=== PATIENT | female | born 1960 | race Caucasian/White ===

== ENCOUNTER → 2017-12-14 | Outpatient (CLI) | payer BC ==
--- NOTE | 2017-12-16 09:34 | MM ---
Reason for exam: screening (asymptomatic). Last mammogram was performed 1 year and 8 months ago. History: Patient is postmenopausal. Physical Findings: A clinical breast exam by your physician is recommended on an annual basis and results should be correlated with mammographic findings. MG 3D Screening Mammo W/Cad Bilateral CC and MLO view(s) were taken. Prior study comparison: April 01, 2016, bilateral MG 3d screening mammo w/cad. February 21, 2015, bilateral MG screening mammo w CAD. There are scattered fibroglandular densities. No significant changes when compared with prior studies. ASSESSMENT: Benign, BI-RAD 2 RECOMMENDATION: Routine screening mammogram of both breasts in 1 year.
== END | disposition home or self-care (01) ==
LOC: RADMAMWWP 09:31
PROVIDERS: ATTEND Internal Medicine
DX: Z12.31 Encounter for screening mammogram for malignant neoplasm of breast (principal)
CPT/HCPCS: 77063; 77067

== ENCOUNTER 2019-02-03 13:17 | Emergency (ER) | payer BC ==
[2019-02-03 13:36] VITALS: RESP 18
[2019-02-03] MEDS ORDERED: DIPH,PERTUS(ACELL)TETVAC-LF 0.5 ML VIAL IM ONE (14:13)
--- NOTE | 2019-02-03 15:08 | ED ---
General Adult HPI - General Chief complaint: Head Injury Stated complaint: Fall, Head injury Time Seen by Provider: 02/03/19 13:52 Source: patient Mode of arrival: ambulatory Limitations: no limitations - History of Present Illness Initial comments: Patient is a 58-year-old female presenting to the emergency department with a chief complaint of a head injury. Patient reports a large board fell on the frontoparietal aspect of the head. Patient denies any loss of consciousness at time of incident. Patient does report a mild laceration at the region of injury. Patient does report mild throbbing at the site of injury. Patient denies any nausea vomiting, visual disturbances, gait instability. Patient denies any neck tenderness. Patient is not on blood thinners. Patient is not aware of her tetanus status. Patient denies taking medication to alleviate the symptoms. - Related Data Allergies Allergy/AdvReac Type Severity Reaction Status Date / Time No Known Allergies Allergy Verified 02/03/19 13:36 Review of Systems ROS Statement: Those systems with pertinent positive or pertinent negative responses have been documented in the HPI. ROS Other: All systems not noted in ROS Statement are negative. Past Medical History Past Medical History: No Reported History History of Any Multi-Drug Resistant Organisms: None Reported Past Surgical History: No Surgical Hx Reported Past Psychological History: No Psychological Hx Reported Smoking Status: Never smoker Past Alcohol Use History: None Reported Past Drug Use History: None Reported General Exam - General Exam Comments Initial Comments: General: Well-developed well-nourished distress Head: 1 cm laceration on the frontoparietal aspect, no active bleeding, no periorbital ecchymosis, negative Renee sign, negative hemotympanum HEENT: Normocephalic/atraumatic, PERLL, pharynx erythema, swallowing well, EAC no erythema, no exudates, TM clear, no cervical lymph nodes Neck: Supple, nontender, trachea midline Chest/Lungs: Normal respirations, no signs of respiratory distress clear to auscultation bilaterally no wheezes, rales, rhonchi Cardiac: Regular rate and rhythm, normal S1-S2, no murmurs rubs or gallops Abdomen/GI: Soft nontender, bowel sounds equal or quadrant x4, no guarding, no rebound no CVA tenderness Musculoskeletal: Nontender, full range of motion, no edema, strength equal bilaterally Skin: Warmth, no rashes or lesions, no cyanosis or diaphoresis Neurologic: AAO x 3, CN 2-12 intact, Psychiatric: Mood and affect normal, judgment normal Limitations: no limitations Course Vital Signs 02/03/19 13:33 Temperature 98.1 F Pulse Rate 115 H Respiratory 18 Rate Blood Pressure 148/85 O2 Sat by Pulse 99 Oximetry Medical Decision Making - Medical Decision Making Patient is a 58-year-old female presenting to emergency Department with a chief complaint of a head injury. A board follow-up on the patient's anterior parietal region of the head. Patient had no loss of consciousness nausea vomiting or any other symptoms. Laceration was repaired with [address] of the brain and C-spine is negative for acute hemorrhage or midline shift. Patient advised to return to the ED for staple removal in 10-14 days. Patient advised on proper wound care. Strict return parameters were thoroughly discussed the patient is understanding and agreeable. Case discussed physician. Disposition Clinical Impression: Scalp laceration Disposition: HOME SELF-CARE Condition: Stable Instructions (If sedation given, give patient instructions): Staple Care (ED) Additional Instructions: Please return to the emergency department for suture removal in 10-14 days. Please follow proper wound care. Please return to emergency department sooner if symptoms worsen. Is patient prescribed a controlled substance at d/c from ED?: No Referrals: Goyo Dunne MD [Primary Care Provider] - 1-2 days Time of Disposition: 15:08
--- NOTE | 2019-02-03 15:14 | CT ---
EXAMINATION TYPE: CT brain marija lowery DATE OF EXAM: 02/03/2019 COMPARISON: None HISTORY: Board fell hitting her head. CT DLP: 1317.8 mGycm, Automated exposure control for dose reduction was used. CONTRAST: None CT of the brain is performed utilizing 3 mm thick sections through the posterior fossa and 3 mm thick sections through the remaining calvarium. Study is performed within 24 hours of arrival to the hospital. No abnormal hyperdensity is present to suggest an acute intracranial hemorrhage. No mass lesion is evident. No acute infarcts are evident. Ventricles and sulci are appropriate for the patient age. Paranasal sinuses and mastoid air cells within the [id number] are clear. IMPRESSIONS: 1. Normal CT brain. CT cervical spine. COMPARISON: None CT of the cervical spine is performed in the axial plane at 2 mm thick sections. Reconstructed image s in the coronal, and sagittal plane are reviewed on the computer. No acute fractures are evident. Vertebral body alignment is normal. Disc heights are preserved. Vertebral body heights are preserved. No spinal canal stenosis is evident. No neural foraminal stenosis is evident. Mild right facet changes may be present C3-4 C4-5 IMPRESSIONS: 1. No acute abnormality cervical spine.
[2019-02-03 15:29] VITALS: BP 164/88; PULSE 98; TEMP 98
== END 2019-02-03 15:29 | disposition home or self-care (01) ==
LOC: EC 13:17
DX: S01.01XA Laceration without foreign body of scalp, initial encounter (principal); Z23 Encounter for immunization; W20.8XXA Other cause of strike by thrown, projected or falling object, initial encounter
CPT/HCPCS: 12001; 70450; 72125; 90471; 90715; 99283

== ENCOUNTER 2019-07-19 06:03 | Emergency (ER) | payer BC ==
[2019-07-19 06:10] VITALS: TEMP 97.7
[2019-07-19] MEDS ORDERED: SODIUM CHLORIDE 0.9% 1,000 ML IV STA ×2 (06:18)
[2019-07-19] MEDS ORDERED: KETOROLAC 30 MG/ML 1 ML VIAL IVP STA (06:18)
[2019-07-19] MEDS ORDERED: ONDANSETRON 4 MG/2 ML VIAL IVP STA (06:18)
[2019-07-19] MEDS ORDERED: MORPHINE SULFATE 4 MG/ML SYRINGE IV STA (06:18)
--- NOTE | 2019-07-19 06:23 | ED ---
Abdominal Pain HPI - General Chief Complaint: Abdominal Pain Stated Complaint: kidney stones Time Seen by Provider: 07/19/19 06:12 Source: patient, RN notes reviewed, old records reviewed Mode of arrival: ambulatory Limitations: no limitations - History of Present Illness Initial Comments: Patient is a 58-year-old female who presents the emergency department today with chief complaint of right lower abdominal pain and right flank pain. Symptoms starting at 3:30 this morning and woke her up from sleep. Patient reports that she thinks is having a kidney stone. She's had these before. She reports that they've all passed on their own without any surgical intervention. Patient denies any recent fevers or chills. She does complain of some nausea. - Related Data Previous Rx's Medication Instructions Recorded HYDROcodone/APAP 5-325MG [Onley 1 tab PO Q6HR PRN 3 Days #12 tab 07/19/19 5-325] Ketorolac [Toradol] 10 mg PO Q6HR #12 tab 07/19/19 Ondansetron Odt [Zofran Odt] 4 mg PO Q8HR PRN #12 tab 07/19/19 Tamsulosin [Flomax] 0.4 mg PO DAILY #7 cap 07/19/19 Allergies Allergy/AdvReac Type Severity Reaction Status Date / Time No Known Allergies Allergy Verified 02/03/19 13:36 Review of Systems ROS Statement: Those systems with pertinent positive or pertinent negative responses have been documented in the HPI. ROS Other: All systems not noted in ROS Statement are negative. Past Medical History Past Medical History: No Reported History History of Any Multi-Drug Resistant Organisms: None Reported Past Surgical History: No Surgical Hx Reported Additional Past Surgical History / Comment(s): thyroid removed. Past Psychological History: No Psychological Hx Reported Smoking Status: Never smoker Past Alcohol Use History: None Reported Past Drug Use History: None Reported General Exam - General Exam Comments Initial Comments: Alert and oriented 58-year-old female. No significant distress. Limitations: no limitations General appearance: alert, in no apparent distress Head exam: Present: atraumatic, normocephalic, normal inspection Eye exam: Present: normal appearance, PERRL, EOMI. Absent: scleral icterus, conjunctival injection, periorbital swelling ENT exam: Present: normal exam, mucous membranes moist Neck exam: Present: normal inspection. Absent: tenderness, meningismus, lymphadenopathy Respiratory exam: Present: normal lung sounds bilaterally. Absent: respiratory distress, wheezes, rales, rhonchi, stridor Cardiovascular Exam: Present: regular rate, normal rhythm, normal heart sounds. Absent: systolic murmur, diastolic murmur, rubs, gallop, clicks GI/Abdominal exam: Present: soft, tenderness (R CVA tenderness), normal bowel sounds. Absent: distended, guarding, rebound, rigid Extremities exam: Present: normal inspection, full ROM, normal capillary refill. Absent: tenderness, pedal edema, joint swelling, calf tenderness Back exam: Present: normal inspection Neurological exam: Present: alert, oriented X3, CN II-XII intact Psychiatric exam: Present: normal affect, normal mood Skin exam: Present: warm, dry, intact, normal color. Absent: rash Course Vital Signs 07/19/19 07/19/19 06:06 07:04 Temperature 97.7 F Pulse Rate 63 80 Respiratory 18 16 Rate Blood Pressure 148/89 133/83 O2 Sat by Pulse 100 97 Oximetry Medical Decision Making - Medical Decision Making 58-year-old male presents today for onset of right-sided flank pain. Symptoms starting at 3:30 this morning. At this time patient's labs are reviewed. She does have significant hematuria. Patient's blood work was otherwise unremar kable kidney functions normal. CT abdomen and pelvis was completed and shows a 5 mm stone in the right UVJ. Discusses this moment should pass on its own. Patient was given Flomax emergency Department and pain was managed after IV pain medication. I discussed Patient needs follow-up with primary care doctor and urology. All questions answered. - Lab Data Result diagrams: 07/19/19 06:20 07/19/19 06:20 Lab Results 07/19/19 07/19/19 07/19/19 Range/Units 06:20 06:20 06:20 WBC 8.4 (3.8-10.6) k/uL RBC 4.87 (3.80-5.40) m/uL Hgb 13.2 (11.4-16.0) gm/dL Hct 42.3 (34.0-46.0) % MCV 86.8 (80.0-100.0) fL MCH 27.1 (25.0-35.0) pg MCHC 31.3 (31.0-37.0) g/dL RDW 13.9 (11.5-15.5) % Plt Count 324 (150-450) k/uL Neutrophils % 71 % Lymphocytes % 21 % Monocytes % 5 % Eosinophils % 1 % Basophils % 0 % Neutrophils # 6.0 (1.3-7.7) k/uL Lymphocytes # 1.7 (1.0-4.8) k/uL Monocytes # 0.4 (0-1.0) k/uL Eosinophils # 0.1 (0-0.7) k/uL Basophils # 0.0 (0-0.2) k/uL PT 9.7 (9.0-12.0) sec INR 0.9 (<1.2) APTT 20.7 L (22.0-30.0) sec Sodium 137 (137-145) mmol/L Potassium 4.4 (3.5-5.1) mmol/L Chloride 105 (98-107) mmol/L Carbon Dioxide 25 (22-30) mmol/L Anion Gap 7 mmol/L BUN 17 (7-17) mg/dL Creatinine 0.80 (0.52-1.04) mg/dL Est GFR (CKD-EPI)AfAm >90 (>60 ml/min/1.73 sqM) Est GFR (CKD-EPI)NonAf 82 (>60 ml/min/1.73 sqM) Glucose 151 H (74-99) mg/dL Calcium 9.2 (8.4-10.2) mg/dL Total Bilirubin 0.3 (0.2-1.3) mg/dL AST 23 (14-36) U/L ALT 20 (4-34) U/L Alkaline Phosphatase 111 (38-126) U/L Total Protein 6.7 (6.3-8.2) g/dL Albumin 3.9 (3.5-5.0) g/dL Amylase 59 (30-110) U/L Lipase 89 (23-300) U/L Urine Color Urine Appearance (Clear) Urine pH (5.0-8.0) Ur Specific Emery (1.001-1.035) Urine Protein (Negative) Urine Glucose (UA) (Negative) Urine Ketones (Negative) Urine Blood (Negative) Urine Nitrite (Negative) Urine Bilirubin (Negative) Urine Urobilinogen (<2.0) mg/dL Ur Leukocyte Esterase (Negative) Urine RBC (0-5) /hpf Urine WBC (0-5) /hpf Ur Squamous Epith Cells (0-4) /hpf Urine Bacteria (None) /hpf Urine Mucus (None) /hpf 07/19/19 Range/Units 07:27 WBC (3.8-10.6) k/uL RBC (3.80-5.40) m/uL Hgb (11.4-16.0) gm/dL Hct (34.0-46.0) % MCV (80.0-100.0) fL MCH (25.0-35.0) pg MCHC (31.0-37.0) g/dL RDW (11.5-15.5) % Plt Count (150-450) k/uL Neutrophils % % Lymphocytes % % Monocytes % % Eosinophils % % Basophils % % Neutrophils # (1.3-7.7) k/uL Lymphocytes # (1.0-4.8) k/uL Monocytes # (0-1.0) k/uL Eosinophils # (0-0.7) k/uL Basophils # (0-0.2) k/uL PT (9.0-12.0) sec INR (<1.2) APTT (22.0-30.0) sec Sodium (137-145) mmol/L Potassium (3.5-5.1) mmol/L Chloride (98-107) mmol/L Carbon Dioxide (22-30) mmol/L Anion Gap mmol/L BUN (7-17) mg/dL Creatinine (0.52-1.04) mg/dL Est GFR (CKD-EPI)AfAm (>60 ml/min/1.73 sqM) Est GFR (CKD-EPI)NonAf (>60 ml/min/1.73 sqM) Glucose (74-99) mg/dL Calcium (8.4-10.2) mg/dL Total Bilirubin (0.2-1.3) mg/dL AST (14-36) U/L ALT (4-34) U/L Alkaline Phosphatase (38-126) U/L Total Protein (6.3-8.2) g/dL Albumin (3.5-5.0) g/dL Amylase (30-110) U/L Lipase (23-300) U/L Urine Color Yellow Urine Appearance Cloudy H (Clear) Urine pH 5.5 (5.0-8.0) Ur Specific Emery 1.028 (1.001-1.035) Urine Protein 1+ H (Negative) Urine Glucose (UA) Negative (Negative) Urine Ketones Negative (Negative) Urine Blood Moderate H (Negative) Urine Nitrite Negative (Negative) Urine Bilirubin Negative (Negative) Urine Urobilinogen <2.0 (<2.0) mg/dL Ur Leukocyte Esterase Trace H (Negative) Urine RBC >182 H (0-5) /hpf Urine WBC 8 H (0-5) /hpf Ur Squamous Epith Cells 1 (0-4) /hpf Urine Bacteria Rare H (None) /hpf Urine Mucus Occasional H (None) /hpf 07/19/19 07:00 EKG shows sinus bradycardia with sinus arrhythmia, possible left atrial enlargement. Borderline EKG. Ventricular rate of 58 bpm. Was 134 ms. QRS ration is 90 ms. QT QTc is 480/471 ms. - Radiology Data Radiology results: report reviewed 0.5 cm obstructing right ureteral vesicle junction stone. Mild bilateral hydronephrosis. Multiple peripelvic cysts may also be present on the right as well as the inferior pole renal cyst. Hydronephrosis is greater on the right than the left. Disposition Clinical Impression: Right ureteral calculus Disposition: HOME SELF-CARE Condition: Good Instructions (If sedation given, give patient instructions): Ureteral Stones (ED) Additional Instructions: Please use medication as discussed. Drink plenty of fluids. Please follow up with family doctor if symptoms have not improved over the next two days. Please return to the emergency room if your symptoms increase or worsen or for any other concerns. Prescriptions: Tamsulosin [Flomax] 0.4 mg PO DAILY #7 cap HYDROcodone/APAP 5-325MG [Onley 5-325] 1 tab PO Q6HR PRN 3 Days #12 tab PRN Reason: Pain Ketorolac [Toradol] 10 mg PO Q6HR #12 tab Ondansetron Odt [Zofran Odt] 4 mg PO Q8HR PRN #12 tab PRN Reason: Nausea Is patient prescribed a controlled substance at d/c from ED?: Yes If prescribed controlled substance>3 days was MAPS reviewed?: Prescribed <3 Days If opioid is for acute pain is fill amount 7 days or less?: Yes If Rx opioid, was Start Talking consent form obtained?: Yes Referrals: Goyo Dunne MD [Primary Care Provider] - 1-2 days Jose Miguel Gonzalez MD [STAFF PHYSICIAN] - 1-2 days Time of Disposition: 08:24
[2019-07-19 06:29] LABS: Basophils % (A) 0 %; Eosinophils # (A) 0.1 k/uL (0-0.7); Eosinophils % (A) 1 %; HCT 42.3 % (34.0-46.0); HGB 13.2 gm/dL (11.4-16.0); Lymphocytes # (A) 1.7 k/uL (1.0-4.8); Lymphocytes % (A) 21 %; MCH 27.1 pg (25.0-35.0); MCHC 31.3 g/dL (31.0-37.0); MCV 86.8 fL (80.0-100.0); Mean Platelet Volume 7.2; Monocytes # (A) 0.4 k/uL (0-1.0); Monocytes % (A) 5 %; Neutrophils % (A) 71 %; Platelet Count 324 k/uL (150-450); RBC 4.87 m/uL (3.80-5.40); RDW 13.9 % (11.5-15.5); WBC 8.4 k/uL (3.8-10.6)
[2019-07-19 06:38] LABS: ALT 20 U/L (4-34); AST 23 U/L (14-36); African American GFR (CKD) >90 (>60 ml/min/1.73 sqM); Albumin 3.9 g/dL (3.5-5.0); Alkaline Phosphatase 111 U/L (38-126); Amylase 59 U/L (30-110); Anion Gap 7 mmol/L; Blood Urea Nitrogen 17 mg/dL (7-17); Calcium 9.2 mg/dL (8.4-10.2); Carbon Dioxide 25 mmol/L (22-30); Chloride 105 mmol/L (98-107); Glucose 151 mg/dL (74-99); Non-African American GFR(CKD) 82 (>60 ml/min/1.73 sqM); Potassium 4.4 mmol/L (3.5-5.1); Sodium 137 mmol/L (137-145); Total Bilirubin 0.3 mg/dL (0.2-1.3); Total Protein 6.7 g/dL (6.3-8.2)
[2019-07-19 06:47] LABS: INR 0.9 (<1.2); Prothrombin Time 9.7 sec (9.0-12.0)
[2019-07-19 06:50] LABS: Partial Thromboplastin Time 20.7 sec (22.0-30.0)
[2019-07-19 07:06] VITALS: RESP 16
--- NOTE | 2019-07-19 07:16 | XR ---
EXAMINATION TYPE: XR KUB DATE OF EXAM: 07/19/2019 COMPARISON: None INDICATION: Abdominal pain TECHNIQUE: Single view abdomen upright view FINDINGS: There is a nonspecific bowel gas pattern. Air is within the colon and small bowel. No suspicious diff erential air-fluid levels are present. No free air is evident. Psoas margins are normal. No organomegaly is present. IMPRESSION: 1. Nonspecific abdomen.
--- NOTE | 2019-07-19 08:00 | CT ---
EXAMINATION TYPE: CT abdomen pelvis wo con DATE OF EXAM: 07/19/2019 COMPARISON: None INDICATION: Right sided flank pain DLP: 700.2 mGycm, Automated exposure control for dose reduction was used. CONTRAST: 0 mL of Isovue 300. Study performed without Oral Contrast TECHNIQUE: Axial images were obtained from above the diaphragm to the pubic rami in the axial plane a t 5 mm thick sections. Reconstructed images are reviewed on the computer in the coronal plane. FINDINGS: Limited CT sections are obtained the lung bases. The lung bases are clear. There is a small hiatal hernia. 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 CT ABDOMEN: Liver: There is a small hypodensity within the periphery of the right lobe liver may be a small hepat ic cyst measuring 0.9 cm. Liver otherwise appears unremarkable. Spleen: Normal Pancreas: Normal Adrenal glands: The adrenal glands are normal. Gallbladder: Normal Kidneys: There are bilateral peripelvic cysts present. Cortical renal cysts on the inferior pole righ t kidney measuring 4.8 cm and 12 Hounsfield units. Mild bilateral hydronephrosis may be present punct ate calcification may be along the wall of the inferior pole renal cyst on the right measuring 0.1 cm . This could be an inferior pole renal stone not causing obstruction. Aorta: Vascular calcification is within the aorta. Inferior vena cava: Normal. CT PELVIS: Loops of bowel within the abdomen and pelvis are normal. Study is without oral contrast limiting bowel evaluation. Appendix: Normal as visualized. Urinary bladder: There is a calcification at the inferior right ureter at the ureterovesical junction on the right. This measures 0.5 cm and is likely causing obstruction. Genitourinary structures: There is a pedunculated calcified fibroid from the posterior uterus. Adnexa l regions appear normal. Osseous structures: No suspicious lytic or sclerotic lesions. Facet degenerative changes are within t he lower lumbar spine IMPRESSIONS: 1. 0.5 cm obstructing right ureteral vesicle junction stone. 2. Mild bilateral hydronephrosis. Multiple peripelvic cyst may also be present on the right as well a s a inferior pole renal cyst. Hydronephrosis is greater on the right than the left. 3. Hiatal hernia.
[2019-07-19] MEDS ORDERED: TAMSULOSIN 0.4 MG CAP.ER.24H PO STA (08:03)
[2019-07-19 08:18] LABS: Appearance,Urine Cloudy (Clear); Bacteria,Urine Rare /hpf; Bilirubin,Urine Negative (Negative); Blood,Urine Moderate (Negative); Color,Urine Yellow; Glucose,Urine (UA) Negative (Negative); Ketones,Urine Negative (Negative); Leukocyte Esterase,Urine Trace (Negative); Mucus,Urine Occasional /hpf; Nitrite,Urine Negative (Negative); PH, Urine 5.5 (5.0-8.0); Protein,Urine 1+ (Negative); RBC,Urine >182 /hpf (0-5); Specific Gravity,Urine 1.028 (1.001-1.035); Squamous Epithelial Cell,Urine 1 /hpf (0-4); Urobilinogen,Urine <2.0 mg/dL (<2.0); WBC,Urine 8 /hpf (0-5)
[2019-07-19 08:41] VITALS: BP 132/74; PULSE 83
== END 2019-07-19 08:40 | disposition home or self-care (01) ==
LOC: EC 06:03
DX: N13.2 Hydronephrosis with renal and ureteral calculous obstruction (principal)
CPT/HCPCS: 36415; 93005; 80053; 82150; 83690; 85025; 85610; 85730; 81001; 74018; 74176; 99285; 96374; 96375 ×2; 96361; J2270; J2405; J1885

== ENCOUNTER → 2021-02-01 | Outpatient (CLI) | payer BC ==
--- NOTE | 2021-02-04 09:37 | MM ---
Reason for exam: screening (asymptomatic). Last mammogram was performed 3 years and 2 months ago. History: Patient is postmenopausal. Physical Findings: A clinical breast exam by your physician is recommended on an annual basis and results should be correlated with mammographic findings. MG 3D Screening Mammo W/Cad Bilateral CC and MLO view(s) were taken. Prior study comparison: December 14, 2017, bilateral MG 3d screening mammo w/cad. There are scattered fibroglandular densities. No significant changes when compared with prior studies. ASSESSMENT: Negative, BI-RAD 1 RECOMMENDATION: Routine screening mammogram of both breasts in 1 year.
== END | disposition home or self-care (01) ==
LOC: RADMAMWWP 13:51
PROVIDERS: ATTEND Family Medicine
DX: Z12.31 Encounter for screening mammogram for malignant neoplasm of breast (principal); Z78.0 Asymptomatic menopausal state
CPT/HCPCS: 77063; 77067

== ENCOUNTER → 2024-06-15 | Outpatient (CLI) | payer BC ==
--- NOTE | 2024-06-15 12:26 | MM ---
Reason for Exam: Screening (asymptomatic). Last mammogram was performed 1 year(s) and 5 month(s) ago. Patient History: Menarche at age 15. First Full-Term at age 26. Postmenopausal. Risk Values: Zayra 5 year model risk: 1.5%. NCI Lifetime model risk: 7.0%. Prior Study Comparison: 12/14/2017 Bilateral Screening Mammogram, [facility]. 02/01/2021 Bilateral Screening Mammogram, [facility]. 01/13/2023 Bilateral MG 3D screening mammo w/cad, [facility]. Tissue Density: There are scattered areas of fibroglandular density. Findings: Analyzed By CAD. Right breast: There is no suspicious group of microcalcifications or new suspicious mass. Left breast: There is no suspicious group of microcalcifications or new suspicious mass. Overall Assessment: Negative, BI-RAD 1 Management: Screening Mammogram of both breasts in [address] [facility] will attempt to contact patient to return for supplemental views and ultrasound if indicated. Patient should continue monthly self-breast exams. A clinical breast exam by your physician is recommended on an annual basis. This exam should not preclude additional follow-up of suspicious palpable abnormalities. Note on Zayra scores and lifetime risk: 1. A Zayra score greater than 3% is considered moderate risk. If this is the case, consider specialist referral to assess eligibility for a risk reducing agent. 2. If overall lifetime risk for the development of breast cancer is 20% or higher, the patient may qualify for future screening with alternating mammogram and breast MRI. [facility], , 06/15/2024 12:23 PM. Electronically signed and approved by: Chacho Dean DO
== END | disposition home or self-care (01) ==
LOC: RADMAMWWP 11:12
PROVIDERS: ATTEND Family Medicine
DX: Z12.31 Encounter for screening mammogram for malignant neoplasm of breast (principal); R92.323 Mammographic fibroglandular density, bilateral breasts; Z78.0 Asymptomatic menopausal state
CPT/HCPCS: 77063; 77067